=== PATIENT | female | born 1955 | race Caucasian/White ===

== ENCOUNTER → 2021-05-28 | Outpatient (CLI) | payer SELFPAY | LOC: MAMO 13:15 | DX: Z12.31 Encounter for screening mammogram for malignant neoplasm of breast (principal) | CPT/HCPCS: 77063; 77067 ==

== ENCOUNTER → 2021-08-17 | Outpatient (CLI) | payer OTHER | LOC: CT 13:29 | DX: R10.813 Right lower quadrant abdominal tenderness (principal); R91.8 Other nonspecific abnormal finding of lung field; M47.816 Spondylosis without myelopathy or radiculopathy, lumbar region; M48.061 Spinal stenosis, lumbar region without neurogenic claudication | CPT/HCPCS: 36415; 82565; Q9967 ==

== ENCOUNTER → 2021-08-25 | Outpatient (CLI) | payer OTHER | LOC: CT 07:41 | DX: K63.9 Disease of intestine, unspecified (principal); R91.8 Other nonspecific abnormal finding of lung field | CPT/HCPCS: 70470; 71260; Q9967 ==

== ENCOUNTER → 2021-09-11 | Outpatient (CLI) | payer OTHER ==
[~2021-09-11] MED LIST: ALBUTEROL2.5 MG/3 M INH; LISINOPRIL-HCT1 EACH PO; PROAIR HFA8.5 GM INH; SERTRALINE HCL50 MG PO
[2021-09-11 09:31] LABS: HEMOGLOBIN 13.7 gm/dl (12.3-15.3); RED BLOOD COUNT 4.65 M/UL (4.00-5.10)
[2021-09-11 10:22] LABS: BUN/CREATININE RATIO 19 (0-10)
== END ==
LOC: OPSV2 08:00
PROVIDERS: Anesthesiology
DX: Z01.818 Encounter for other preprocedural examination (principal); I51.7 Cardiomegaly; I25.2 Old myocardial infarction; R94.31 Abnormal electrocardiogram [ECG] [EKG]
CPT/HCPCS: 80048; 85025; 93005

== ENCOUNTER 2021-09-14 08:08 | Inpatient (IN) | payer OTHER ==
[~2021-09-14] VITALS: Ht 172.7 cm; Wt 117.9 kg
[2021-09-15 06:33] LABS: HEMOGLOBIN 12.9 gm/dl (12.3-15.3); RED BLOOD COUNT 4.42 M/UL (4.00-5.10); WHITE BLOOD COUNT 9.7 K/UL (4.5-11.0)
[2021-09-15 06:57] LABS: BUN/CREATININE RATIO 11 (0-10)
[2021-09-17 10:22] LABS: HEMOGLOBIN 12.6 gm/dl (12.3-15.3); RED BLOOD COUNT 4.28 M/UL (4.00-5.10); WHITE BLOOD COUNT 7.5 K/UL (4.5-11.0)
[2021-09-17 10:55] LABS: BUN/CREATININE RATIO 12 (0-10)
[2021-09-18] MEDS ORDERED: COLACE100 MG PO (09:24)
[2021-09-18] MEDS ORDERED: HYDROCODON-ACE1 EAC4 PO (09:24)
== END 2021-09-19 11:46 | disposition home or self-care (01) | DRG 330 ==
LOC: OR 08:08 → M/S 14:58
PROVIDERS: ADMIT Surgery
PROC: 0DTF4ZZ Resection of Right Large Intestine, Percutaneous Endoscopic Approach (ICD-10-PCS; principal; 2021-09-14 09:00)
DX: D12.0 Benign neoplasm of cecum (principal); J98.11 Atelectasis; I10 Essential (primary) hypertension; I34.1 Nonrheumatic mitral (valve) prolapse; Z20.822 Contact with and (suspected) exposure to COVID-19; J45.909 Unspecified asthma, uncomplicated; F41.9 Anxiety disorder, unspecified; E78.5 Hyperlipidemia, unspecified; R91.8 Other nonspecific abnormal finding of lung field; E86.0 Dehydration; G89.28 Other chronic postprocedural pain; K63.89 Other specified diseases of intestine; E55.9 Vitamin D deficiency, unspecified; J02.9 Acute pharyngitis, unspecified; F32.A Depression, unspecified; E66.01 Morbid (severe) obesity due to excess calories; Z98.890 Other specified postprocedural states; Z68.39 Body mass index [BMI] 39.0-39.9, adult; Z79.899 Other long term (current) drug therapy; Z87.09 Personal history of other diseases of the respiratory system; Z90.49 Acquired absence of other specified parts of digestive tract
CPT/HCPCS: 36415; 80048; 85027; 94640; 94760; 97116-GP-CQ; 97162; 97530; 97530-GP-CQ; J0690; J1100; J1170; J1650; J2001; J2250; J2270; J2405; J2550; J2704; J3010; J3480; J7030; J7120